=== PATIENT | female | born 1975 | race Caucasian/White ===

== ENCOUNTER 2019-08-31 06:25 | Day surgery (SDC) | payer OTHER ==
--- NOTE | 2019-08-28 08:21 | CONSULTATION NOTE ---
Consultation Report: Call for pre-op anesthesia evaluation for R sided modified condylotomy. 44yo female with partially locked jaw that has not resolved with noninvasive measures. past surgical history includes a septoplasty and tubal ligation. No anesthesia complications noted. Never smoker, never drugs. No home medications and sensitivity to Sulfa drugs. Denies recent cough, cold, or flu. Teeth intact throughout. Airway assessed as a MP4 with limited jaw opening (2.5 FB). Neck is with FROM. Pt is able to protrude tongue through opening to maximum e xtension. Pt states that [facility] was able to prop mouth open further for an MRI last night using a 20cc syringe as a spacer. Bilateral nares are without occlusion and she denies being able to breath better out of either side. Intubation process was explained to the patient including the possibility that we would not be able to perform the nasal intubation.Pt was informed about NPO policy and what to expect before, during, and after the procedure. She had no further questions for me at this time.
[2019-08-31] MEDS ORDERED: LACTATED RINGERS 1,000 ML IV ONE (06:35)
[2019-08-31] MEDS ORDERED: MINERAL OIL/PETROLAT OPHTH OINT ONE (06:55)
[2019-08-31] MEDS ORDERED: BACITRACIN ZINC OINT 1 PACKET TOP ONE (06:55)
[2019-08-31] MEDS ORDERED: OXYMETAZOLINE HCL 100 SPRAYS BOTTLE NAS ONE (06:56)
[2019-08-31] MEDS ORDERED: BACITRACIN 50,000 UNIT VIAL ONE (06:56)
[2019-08-31] MEDS ORDERED: EPINEPHrine 1 MG/ML AMP ONE ×2 (06:57→08:13)
[2019-08-31] MEDS ORDERED: CHLORHEXIDINE GLUCONATE 15 ML UDC PO ONE (06:58)
[2019-08-31] MEDS ORDERED: CEFAZOLIN SODIUM IN 0.9 % NACL 2 GM/100 ML BAG IV ONE (07:11)
[2019-08-31] MEDS ORDERED: LIDOCAINE 2%-EPI 1:100000 20 ML MDV ONE (07:17)
--- NOTE | 2019-08-31 07:22 | ANESTHESIA ---
Pre-Anesthesia VS, & Labs - Diagnosis jaw pain - Procedure right modified condylotomy Vital Signs: Temp Pulse Resp BP Pulse Ox 36.5 C 69 16 114/72 99 08/31/19 06:40 08/31/19 06:40 08/31/19 06:40 08/31/19 06:40 08/31/19 06:40 Height 5 ft 7 in Weight (kg) 83.5 kg - NPO >8 hours - Is Patient ?: No Home Medications and Allergies Home Medications: Ambulatory Orders Ibuprofen [Advil] 600 mg PO Q8H PRN 08/28/19 Naproxen Sodium [Aleve] 220 mg PO ONCE PRN 08/28/19 Sertraline HCl [Zoloft] 100 mg PO DAILY 08/28/19 Ibuprofen [Advil] 600 mg PO Q8H PRN 08/28/19 Naproxen Sodium [Aleve] 220 mg PO ONCE PRN 08/28/19 Sertraline HCl [Zoloft] 100 mg PO DAILY 08/28/19 Allergies/Adverse Reactions: Allergies Allergy/AdvReac Type Severity Reaction Status Date / Time Sulfa (Sulfonamide Allergy Anaphylaxis Verified 08/28/19 07:57 Antibiotics) Anes History & Medical History - Anesthetic History Anesthesia Complications: reports: No previous complications - Medical History Cardiovascular: reports: None Pulmonary: reports: None Gastrointestinal: reports: None Urinary: reports: None Musculoskeletal: reports: None Endocrine/Autoimmune: reports: None Skin: reports: None - Surgical History Gynecologic: Tubal ligation Exam General: Alert Dental: WNL Mouth Openin Fingerbreadth Neck Mobility: Normal Mallampati classification: III Thyromental Distance: greater than 6 cm Respiratory: Lungs clear Cardiovascular: Regular rate Plan Anesthesia Type: General Consent for Procedure(s) Verified and Reviewed: Yes Code Status: Attempt Resuscitation ASA classification: 1-Healthy patient Is this case an emergency?: No
[2019-08-31] MEDS ORDERED: KETOROLAC 30 MG/ML VIAL IVP ONE (07:38)
[2019-08-31] MEDS ORDERED: MIDAZOLAM 2 MG/2 ML VIAL IVP ONE (07:38)
[2019-08-31] MEDS ORDERED: ONDANSETRON 4 MG/2 ML VIAL IVP ONE (07:38)
[2019-08-31] MEDS ORDERED: PROPOFOL 200 MG/20 ML VIAL IVP ONE (07:38)
[2019-08-31] MEDS ORDERED: ROCURONIUM 50 MG/5 ML VIAL IVP ONE (07:38)
[2019-08-31] MEDS ORDERED: LIDOCAINE-MPF 2% 5 ML VIAL IM ONE (07:38)
[2019-08-31] MEDS ORDERED: DEXAMETHASONE 4 MG/ML VIAL IVP ONE (07:38)
[2019-08-31] MEDS ORDERED: fentaNYL 100 MCG/2 ML VIAL IVP ONE ×4 (07:38→10:15)
[2019-08-31] MEDS ORDERED: HYDROmorphone 1 MG/ML SYRINGE IVP ONE (07:38)
[2019-08-31] MEDS ORDERED: ACETAMINOPHEN 1,000 MG/100 ML 100 ML IV ONE (07:38)
[2019-08-31] MEDS ORDERED: LIDOCAINE 1%-EPI 1:100000 30 ML MDV SUBQ ONE ×2 (08:06)
[2019-08-31] MEDS ORDERED: EPINEPHrine 1 MG/ML AMP SUBQ ONE (08:07)
[2019-08-31] MEDS ORDERED: fentaNYL 100 MCG/2 ML VIAL ONE ×2 (09:54→10:15)
[2019-08-31] MEDS ORDERED: HYDROmorphone 0.5 MG/0.5 ML SYRINGE ONE (10:45)
[2019-08-31] MEDS ORDERED: ONDANSETRON 4 MG/2 ML VIAL IVP PRN (10:54)
[2019-08-31] MEDS ORDERED: oxyCODONE 10 MG/0.5 ML SYRINGE PO PRN (10:54)
[2019-08-31] MEDS ORDERED: HYDROmorphone 2 MG/ML VIAL IVP PRN (10:54)
[2019-08-31 11:22] VITALS: BP 118/72
--- NOTE | 2019-08-31 11:51 | OPERATIVE REPORT ---
DATE OF SERVICE: 08/31/2019 Physician: Keith Chu DDS PREOPERATIVE DIAGNOSIS: Trismus and pain secondary to right temporomandibular joint internal derangement. POSTOPERATIVE DIAGNOSIS: Trismus and pain secondary to right temporomandibular joint internal derangement. PROCEDURE PERFORMED: Modified condylotomy of the right temporomandibular joint with placement of arch bars. PRIMARY SURGEON: Keith Chu DDS SAW EDGE FUSER CIRCULAR: Celestine. REGISTERED DIET TECHNICIAN: ERNESTINA So. ANESTHESIA TYPE: General anesthesia via nasal endotracheal intubation. IMPLANTS: Mandibular arch bar and 4 screws, maxillary arch bar and four screws SPECIMENS: None. ESTIMATED BLOOD LOSS: 100 mL INDICATIONS FOR PROCEDURE: This is a 44-year-old female who presented to my clinic with pain and difficulty opening her mouth. She was evaluated clinically and radiographically, and it was found that she had trismus secondary to internal derangement of the right temporomandibular joint. There is also a small joint effusion seen in the right temporomandibular joint on the MRI. It was decided that a modified condylotomy was needed to help this patient be able to open her mouth again and be able to resume speaking and eating. The risks, benefits and alternatives of this plan were discussed with the patient, including pain, swelling, bleeding, infection, failure to resolve the TMJ pain, need for further surgery, malunion, nonunion, malocclusion, permanent numbness of the lower lip. Adequate time was given to answer all questions and informed consent was obtained. DESCRIPTION OF PROCEDURE: The patient was brought to the main operating room and placed in a supine position on the operating table. General anesthesia was induced by the anesthesia team, and the airway was secured with a nasal endotracheal tube secured to the forehead in the usual fashion. The patient was prepped and draped in the standard sterile fashion for an intraoral surgical procedure. All pressure points were padded and checked. The arms were tucked. The eyes were taped. A formal timeout was executed. Local anesthesia was achieved with 13 mL of 2% lidocaine with 1:100,000 epinephrine. A throat pack was placed with a mouth prop and placed. Attention was directed to the right anterior mandibular ramus using a Bovie electrocautery, and incision was made through the mucosa, taking care to protect the Stensen's duct with a retractor. The incision was carried down to bone. A subperiosteal dissection was performed, exposing the entire ramus all the way up to the coronoid notch and all the way down to the inferior border of the mandible in a subperiosteal plane. A J [place] was used to release the masseter attachment from the posterior aspect of the mandible. A nerve hook was used to confirm the location of the coronoid notch. An oscillating saw blade was then used to make a vertical ramus osteotomy under copious amounts of irrigation and tapering off posteriorly towards the inferior border of the mandible to a point. An osteotome was then placed into the osteotomy and, with minimal pressure, the entire proximal segment was popped free of the distal segment. The segment was then grasped with a Abbe and brought laterally, where the [place] was used to release half of the medial pterygoid muscle off the medial aspect of the proximal segment; 5 mm of the inferior aspect of the proximal segment was then removed using a combination of a rongeur and a rasp. The site was then irrigated copiously and closed with 4-0 vicryl suture in a running interlocking fashion. A maxillary hybrid arch bar was applied with 4 screws. The mandibular hybrid arch bar was applied with 4 screws. The throat pack was removed after the patient's mouth was rinsed and cleaned. The patient's face was cleansed. Care of the patient was returned to the anesthesia team. The patient was extubated uneventfully. Once the patient was conscious, her occlusion was held in accurate occlusion using 2 lightweight orthodontic rubber bands. The patient was then transferred to the PACU in stable condition. COMPLICATIONS: None. TD: 08/31/2019 10:56 DIONY
[2019-08-31] MEDS ORDERED: IBUPROFEN 100 MG/5 ML UDC PO SCH (12:00)
== END 2019-08-31 06:26 | disposition home or self-care (01) ==
LOC: SDS 06:25
PROVIDERS: ATTEND Dentist Oral and Maxillofacial Surgery
DX: M26.69 Other specified disorders of temporomandibular joint (principal)
CPT/HCPCS: 21193; A9270; C1713; J0131; J0690; J1170; J7120

== ENCOUNTER 2022-12-16 11:20 | Emergency (ER) | payer OTHER ==
[2022-12-16 11:59] LABS: BASOPHILS % (AUTO) 0.7 %; EOSINOPHILS # (AUTO) 0.1 10^3/uL (0.0-0.7); EOSINOPHILS % (AUTO) 1.2 %; HCT - HEMATOCRIT 45.1 % (37.0-47.0); HGB - HEMOGLOBIN 14.9 g/dL (12.0-16.0); LYMPHOCYTES # (AUTO) 0.7 10^3/uL (1.5-3.5); LYMPHOCYTES % (AUTO) 16.6 %; MEAN CORPUSCULAR HEMOGLOBIN 30.5 pg (27.0-31.0); MEAN CORPUSCULAR VOLUME 92.4 fL (81.0-99.0); MEAN PLATELET VOLUME 10.1 fL (7.9-10.8); MONOCYTES # (AUTO) 0.5 10^3/uL (0.0-1.0); MONOCYTES % (AUTO) 12.4 %; NEUTROPHILS % (AUTO) 68.9 %; PLT - PLATELET COUNT 227 10^3/uL (130-450); RED BLOOD COUNT 4.88 10^6/uL (4.20-5.40); RED CELL DISTRIBUTION WIDTH 13.5 % (12.0-15.0); WHITE BLOOD COUNT 4.3 x10^3/uL (4.8-10.8)
--- NOTE | 2022-12-16 12:12 | XRAY Report ---
PROCEDURE: Chest 1 View X-Ray INDICATIONS: Chest Pain TECHNIQUE: One view of the chest was acquired. COMPARISON: None. FINDINGS: Surgical changes and devices: None. Lungs and pleura: No pleural effusions or pneumothorax. Lungs are clear. Mediastinum: Mediastinal contours appear normal. Heart size is normal. Bones and chest wall: No suspicious bony lesions. Overlying soft tissues appear unremarkable. IMPRESSION: No acute cardiopulmonary process. Reviewed by: Alejandro Melendez on 12/16/2022 11:10 AM OTTO Approved by: Alejandro Melendez on 12/16/2022 11:10 AM OTTO Station ID: [id number]
[2022-12-16 12:15] LABS: ALBUMIN 3.4 g/dL (3.2-5.5); BILIRUBIN,TOTAL 0.4 mg/dL (0.2-1.0); CALCIUM 8.6 mg/dL (8.5-10.3); CREATININE 0.9 mg/dL (0.4-1.0); POTASSIUM 3.2 mmol/L (3.5-5.0); TOTAL PROTEIN 6.7 g/dL (6.7-8.2)
[2022-12-16 14:08] VITALS: BP 135/90
--- NOTE | 2022-12-16 15:42 | ED Physician Documentation ---
PD HPI CHEST PAIN - Stated complaint Stated Complaint: CHEST/BACK PX - Chief complaint Chief Complaint: Cardiac - History obtained from History obtained from: Patient - Additional information Additional information: The patient comes to the emergency department with chief complaint of back pain that goes between her shoulder blades and shoulders and radiates into her chest. She states it is a dull ache but she cannot seem to get away From it. It hurts more with deep breaths. The patient states that she has not had any cough, fever, shortness of breath, or rhinorrhea. She did have some sweats overnight last night. Patient denies any nausea or vomiting. She denies any dyspnea on exertion. Patient has never had symptoms like this before. She denies any smoking, hypertension, or family history of [place]. She does have mild hyperlipidemia, which she states runs in her family. No history of coronary artery disease in the patient or family. She denies edema or pain in her lower extremities. PD PAST MEDICAL HISTORY - Past Medical History Cardiovascular: None Respiratory: None Endocrine/Autoimmune: None GI: None : None HEENT: Chronic vision loss Psych: Depression, Anxiety, Panic attacks Musculoskeletal: None Derm: None - Past Surgical History /TUGBOAT CAPTAIN: Tubal ligation - Present Medications Home Medications: Ambulatory Orders Medication Instructions Recorded Confirmed Escitalopram [Lexapro] 15 mg PO DAILY 12/16/22 12/16/22 buPROPion HCL [Bupropion Xl] 150 mg PO DAILY 12/16/22 12/16/22 - Allergies Allergies/Adverse Reactions: Allergies Allergy/AdvReac Type Severity Reaction Status Date / Time Sulfa (Sulfonamide Allergy Anaphylaxis Verified 12/16/22 11:35 Antibiotics) PD ED PE NORMAL - Vitals Vital signs reviewed: Yes - General General: Alert and oriented X 3, No acute distress, Well developed/nourished - HEENT HEENT: Atraumatic, PERRL, EOMI, Moist mucous membranes - Neck Neck: Supple, no meningeal sign - Cardiac Cardiac: RRR, No murmur - Respiratory Respiratory: No respiratory distress, Clear bilaterally - Abdomen Abdomen: Soft, Non tender, Non distended - Back Back: No spinal TTP, Other (No tenderness to palpation over musculature of upper back.) - Derm Derm: Normal color, Warm and dry - Extremities Extremities: No deformity - Neuro Neuro: Alert and oriented X 3 - Psych Psych: Normal mood, Normal affect Results - Vitals Vitals: Vital Signs - 24 hr 12/16/22 12/16/22 12/16/22 11:35 11:40 13:40 Temperature 36.6 C 36.6 C Heart Rate 95 95 90 Respiratory 18 18 16 Rate Blood Pressure 150/99 H 150/99 H 135/90 H O2 Saturation 100 100 100 12/16/22 15:49 Temperature Heart Rate Respiratory 16 Rate Blood Pressure O2 Saturation 98 Oxygen O2 Source Room air - EKG (time done) 1142 EKG releavant findings:: EKG personally interpreted by author of this note. Relevant findings are: Rate: Rate (enter#) (91) Rhythm: NSR [place]: Normal Intervals: Normal SD QRS: Normal Ischemia: Normal ST segments Compare to prior EKG: Old EKG unavailable Computer interpretation: Agree with computer - Labs Labs: Laboratory Tests 12/16/22 12/16/22 12/16/22 11:55 11:55 11:55 WBC 4.3 L RBC 4.88 Hgb 14.9 Hct 45.1 MCV 92.4 MCH 30.5 MCHC 33.0 RDW 13.5 Plt Count 227 MPV 10.1 Neut # (Auto) 3.0 Lymph # (Auto) 0.7 L Whitman # (Auto) 0.5 Eos # (Auto) 0.1 Baso # (Auto) 0.0 Absolute Nucleated RBC 0.00 Nucleated RBC % 0.0 Sodium 136 Potassium 3.2 L Chloride 106 Carbon Dioxide 27 Anion Gap 3.0 L BUN 6 Creatinine 0.9 Estimated GFR (MDRD) 68 L Glucose 99 Calcium 8.6 Total Bilirubin 0.4 AST 23 ALT 17 Alkaline Phosphatase 59 Troponin I High Sens < 2.3 L Total Protein 6.7 Albumin 3.4 Globulin 3.3 Albumin/Globulin Ratio 1.0 Lipase 27 12/16/22 14:57 WBC RBC Hgb Hct MCV MCH MCHC RDW Plt Count MPV Neut # (Auto) Lymph # (Auto) Whitman # (Auto) Eos # (Auto) Baso # (Auto) Absolute Nucleated RBC Nucleated RBC % Sodium Potassium Chloride Carbon Dioxide Anion Gap BUN Creatinine Estimated GFR (MDRD) Glucose Calcium Total Bilirubin AST ALT Alkaline Phosphatase Troponin I High Sens 2.3 Total Protein Albumin Globulin Albumin/Globulin Ratio Lipase PD Medical Decision Making - ED course Complexity details: reviewed results, re-evaluated patient, considered differential, d/w patient ED course: The patient was worked up with laboratory studies, chest x-ray, and EKG all of which were negative. Repeat troponin was also negative. I felt the patient was stable for discharge home. I did not find a reason for her discomfort, though given that it is worse with inspiration, I suspect it is musculoskeletal in nature. The patient is advised regarding symptomatic management at home and the usual indications for return. Departure - Departure Disposition: Home, Self Care Clinical Impression: Chest pain Qualifiers: Chest pain type: unspecified Qualified Code(s): R07.9 - Chest pain, unspecified Back pain Qualifiers: Back pain location: thoracic back pain Chronicity: acute Back pain laterality: bilateral Qualified Code(s): M54.6 - Pain in thoracic spine Condition: Stable Instructions: ED Chest Pain Atypical Unkn Cause Comments: Your labs, including 2 sets of cardiac enzymes, look good, as your EKG and chest x-ray. It is not clear exactly what is causing the pain in your chest and back, but there is no evidence of an emergent condition at this time. If you continue to notice these episodes, you will need to talk to your doctor about further investigation as an outpatient. If you develop severe chest pain with shortness of breath, nausea, and sweating, please return to the emergency department. Discharge Date/Time: 12/16/22 15:55
== END 2022-12-16 15:55 | disposition home or self-care (01) ==
LOC: ED 11:20
DX: M54.6 Pain in thoracic spine (principal); R07.9 Chest pain, unspecified
CPT/HCPCS: 36415; 80053; 83690; 84484; 85025; 93005; 99283; 99284